=== PATIENT | female | born 1970 | race Caucasian/White ===

== ENCOUNTER 2021-02-16 14:35 | Emergency (ER) | payer MEDICARE, SELFPAY ==
[2021-02-16] VITALS (21 sets, daily range): BP systolic 111–136; BP diastolic 70–93; PULSE 62–82; RESP 10–35; TEMP 36.8; O2SAT 85–100; BMI 26.6
--- NOTE | 2021-02-16 14:39 | ED.CHESTPAIN ---
HPI - Chest Pain <Scot Barrios DO - Last Filed: 02/18/21 15:13> General Chief Complaint: Chest Pain Stated Complaint: chest pain Time Seen by Provider: 02/16/21 14:38 History of Present Illness HPI narrative: 50-year-old female smoker is deaf and without other medical problems. 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 She states she has been having sharp and stabbing right anterior chest pain for the past 2 days. She states worse when she moves and when she takes a deep breath. She states that she is only mildly short of breath and denies any cough, fever or chills. She is not dizzy nor weak or lightheaded. She does feel thirsty. She denies any abdominal pain, constipation or diarrhea. She denies dysuria, frequency or urgency. She denies any radiation of her discomfort, recent travel or history of blood clot. Related Data Previous Rx's Medication Instructions Recorded ibuprofen 800 mg tablet 800 mg PO Q8H PRN #20 tab 02/16/21 Allergies Allergy/AdvReac Type Severity Reaction Status Date / Time No Known Drug Allergies Allergy Verified 02/16/21 14:57 Review of Systems <Scot Barrios DO - Last Filed: 02/18/21 15:13> Review of Systems Narrative: GENERAL: Denies chills, fatigue, malaise, fever, sweats. HEENT: Denies sinus pain, ear pain, sore throat, difficulty swallowing, dizziness. RESPIRATORY: See HPI CARDIOVASCULAR: See HPI GASTROINTESTINAL: Denies nausea, vomiting, abdominal pain, diarrhea, constipation, melena. : Denies dysuria, frequency, incontinence, hematuria, urinary retention. MUSCULOSKELETAL: denies weakness, joint pain, or bony pain SKIN: Denies rash, skin lesions, or other NEUROLOGIC: Denies weakness, headache, numbness, change in speech, confusion, seizures, incoordination. PSYCHIATRIC: No concerning psychosocial issues. 12 point review of systems is negative except for those stated above Patient History <Scot Barrios DO - Last Filed: 02/18/21 15:13> Social History Smoking Status: Current every day smoker Exam <Scot Barrios DO - Last Filed: 02/18/21 15:13> Narrative Exam Narrative: GENERAL: [50] year old patient appears stated age. Well-developed patient, in mild distress. HEAD: Atraumatic. Normocephalic. EYES: Pupils equal round and reactive. Extraocular motions intact. No scleral icterus. No injection or drainage. ENT: Nose without bleeding, purulent drainage. Throat without erythema, tonsillar hypertrophy or exudate. Airway patent. NECK: Trachea midline. Non tender CARDIOVASCULAR: Regular rate and rhythm without murmurs, gallops, or rubs. Right anterior chest pain reproducible to palpation RESPIRATORY: Clear to auscultation. Breath sounds equal bilaterally. No wheezes, rales, or rhonchi. GASTROINTESTINAL: Abdomen soft, non-tender, nondistended. EXTREMITIES: No edema or joint tenderness. BACK: Nontender without deformity or crepitance. No flank tenderness. NEURO: AOx3. SKIN: No rash or erythema of visible areas Initial Vital Signs Initial Vital Signs: Vital Signs Temperature 98.2 F 02/16/21 14:40 Pulse Rate 75 02/16/21 14:40 Respiratory Rate 13 02/16/21 14:40 Blood Pressure 126/73 02/16/21 14:40 Pulse Oximetry 99 02/16/21 14:40 <Kiki Perez, DO - Last Filed: 02/17/21 05:26> Initial Vital Signs Initial Vital Signs: Vital Signs Temperature 98.2 F 02/16/21 14:40 Pulse Rate 75 02/16/21 14:40 Respiratory Rate 13 02/16/21 14:40 Blood Pressure 126/73 02/16/21 14:40 Pulse Oximetry 99 02/16/21 14:40 Scores <Scot Barrios, DO - Last Filed: 02/18/21 15:13> HEART Score Heart Score history: Slightly Suspicious Heart Score EKG: Normal Heart Score Age: 45-64 years old Heart Score risk factors: 1-2 risk factors Heart Score troponin: < or = to normal limit Heart Score Total: 2 PERC Score Age greater than or equal to 50 years: Yes Heart rate greater than or equal to 100 bpm: No Room Air O2 Sat less than 95%: No Unilateral leg swelling: No Recent trauma or surgery: No Hemoptysis: No Prior PE or DVT: No Hormone Use: No Total PERC Score: 1 Wells' Criteria for PE Clinical signs and symptoms of DVT: No PE is #1 Dx or equally likely: No Heart rate > 100: No Immobilization at least 3 days or surg in previous 4 weeks: No History of PE or DVT: No Hemoptysis: No Malignancy w/Treatment within 6 months or palliative: No Wells' PE Score total: 0 <Kiki Perez DO - Last Filed: 02/17/21 05:26> HEART Score Heart Score Total: 2 PERC Score Total PERC Score: 1 Wells' Criteria for PE Wells' PE Score total: 0 Course <Scot Barrios DO - Last Filed: 02/18/21 15:13> Course Course Narrative: 1999 -patient signed out to Dr. Perez for final disposition, D-dimer is pending and patient would likely receive CT angiogram should to be positive. Orders Ordered: Discontinued Medications Sodium Chloride (Normal Saline 0.9%) 1,000 mls @ 1,000 mls/hr IV BOLUS ONE Stop: 02/16/21 19:51 Last Infusion: 02/16/21 21:25 Dose: 0 mls/hr Documented by: Admin: 02/16/21 19:37 Dose: 1,000 mls/hr Documented by: HARRY Ketorolac Tromethamine (Ketorolac 30 Mg/Ml Vial) 15 mg IV NOW ONE Stop: 02/16/21 18:53 Last Admin: 02/16/21 19:37 Dose: 15 mg Documented by: HARRY Vital Signs Vital signs: Vital Signs - 8 hr 02/16/21 21:30 02/16/21 22:00 Pulse Rate 71 77 Respiratory Rate 11 L Blood Pressure 131/85 123/78 Pulse Oximetry 100 99 <Kiki Perez DO - Last Filed: 02/17/21 05:26> Orders Ordered: Discontinued Medications Sodium Chloride (Normal Saline 0.9%) 1,000 mls @ 1,000 mls/hr IV BOLUS ONE Stop: 02/16/21 19:51 Last Infusion: 02/16/21 21:25 Dose: 0 mls/hr Documented by: Admin: 02/16/21 19:37 Dose: 1,000 mls/hr Documented by: HARRY Ketorolac Tromethamine (Ketorolac 30 Mg/Ml Vial) 15 mg IV NOW ONE Stop: 02/16/21 18:53 Last Admin: 02/16/21 19:37 Dose: 15 mg Documented by: HARRY Vital Signs Vital signs: Vital Signs - 8 hr 02/16/21 21:30 02/16/21 22:00 Pulse Rate 71 77 Respiratory Rate 11 L Blood Pressure 131/85 123/78 Pulse Oximetry 100 99 MDM - Chest Pain <Scot Barrios DO - Last Filed: 02/18/21 15:13> Lab Data Result diagrams: 02/16/21 15:03 02/16/21 15:03 Labs: Lab Results 02/16/21 02/16/21 02/16/21 Range/Units 15:03 15:03 17:08 WBC 7.0 (4.5-11.0) X10^3/uL RBC 3.82 L (4.0-5.2) X10^6/uL Hgb 11.9 L (12.0-16.0) g/dL Hct 35.2 L (36-46) % MCV 92.2 (80-100) fL MCH 31.1 (26-34) PG MCHC 33.7 (30-36) % RDW 13.1 (11.6-14.8) % Plt Count 273 (150-400) X10^3/uL Neut % (Auto) 51.1 (50-75) % Lymph % (Auto) 37.2 (25-40) % [place] % (Auto) 8.9 (3-14) % Eos % (Auto) 1.7 L (2-4) % Baso % (Auto) 1.1 (0-2) % Neut # (Auto) 3600 (9403-3919) /uL Lymph # (Auto) 2600 (7117-0049) /uL [place] # (Auto) 600 (0-900) /uL Eos # (Auto) 100 (0-450) /uL Baso # (Auto) 100 (0-100) /uL D-Dimer (<230) ng/mL Sodium 138 (137-145) mmol/L Potassium 3.9 (3.4-5.1) mmol/L Chloride 110 H (98-107) mmol/L Carbon Dioxide 24 (22-32) mmol/L BUN 17 (7-17) mg/dL Creatinine 0.60 (0.52-1.04) mg/dL Estimated GFR > 60.0 (>60) mL/min BUN/Creatinine Ratio 28.3 H (6-22) Glucose 93 (70-100) mg/dL Calcium 8.8 (8.4-10.2) mg/dL Total Bilirubin < 0.1 L (0.2-1.3) mg/dL AST 23 (14-36) IU/L ALT 17 (<35) IU/L Alkaline Phosphatase 58 (38-126) U/L Total Creatine Kinase 34 (30-135) U/L CK-MB (CK-2) TNP CK-MB (CK-2) Rel Index TNP Troponin I < 0.012 < 0.012 (0.01-0.034) ng/mL Total Protein 6.4 (6.3-8.2) g/dL Albumin 3.4 L (3.5-5.0) g/dL Globulin 3.0 (1.7-4.1) g/dL Albumin/Globulin Ratio 1.1 (1.0-2.8) Lipase 85 (23-300) U/L // Range/Units 20:10 WBC (4.5-11.0) X10^3/uL RBC (4.0-5.2) X10^6/uL Hgb (12.0-16.0) g/dL Hct (36-46) % MCV (80-100) fL MCH (26-34) PG MCHC (30-36) % RDW (11.6-14.8) % Plt Count (150-400) X10^3/uL Neut % (Auto) (50-75) % Lymph % (Auto) (25-40) % [place] % (Auto) (3-14) % Eos % (Auto) (2-4) % Baso % (Auto) (0-2) % Neut # (Auto) (3583-9953) /uL Lymph # (Auto) (8324-7309) /uL [place] # (Auto) (0-900) /uL Eos # (Auto) (0-450) /uL Baso # (Auto) (0-100) /uL D-Dimer < 200 (<230) ng/mL Sodium (137-145) mmol/L Potassium (3.4-5.1) mmol/L Chloride (98-107) mmol/L Carbon Dioxide (22-32) mmol/L BUN (7-17) mg/dL Creatinine (0.52-1.04) mg/dL Estimated GFR (>60) mL/min BUN/Creatinine Ratio (6-22) Glucose (70-100) mg/dL Calcium (8.4-10.2) mg/dL Total Bilirubin (0.2-1.3) mg/dL AST (14-36) IU/L ALT (<35) IU/L Alkaline Phosphatase (38-126) U/L Total Creatine Kinase (30-135) U/L CK-MB (CK-2) CK-MB (CK-2) Rel Index Troponin I (0.01-0.034) ng/mL Total Protein (6.3-8.2) g/dL Albumin (3.5-5.0) g/dL Globulin (1.7-4.1) g/dL Albumin/Globulin Ratio (1.0-2.8) Lipase (23-300) U/L Imaging Data Chest x-ray: Radiologist's Impression: [address] [id number] ReportSigned Patient: Milly Parker#: [id number]: 1970Acct:[id number]/Sex: 50 / FDate of Service: 02/16/21Loc: EDAccession Number: [id number] Procedure: XR chest 1V Ordering Provider: Scot Barrios D.O. PROCEDURE: XR CHEST 1V INDICATIONS: chest pain TECHNIQUE: One view of the chest was acquired. COMPARISON: [facility], , XR CHEST 2 VIEWS, 07/21/2016, 20:43. FINDINGS: Surgical changes and devices: None. Lungs and pleura: Lungs are clear. No pleural effusions or pneumothorax. Mediastinum: Mediastinal contours appear normal. Heart size is normal. Bones and chest wall: No suspicious bony lesions. Overlying soft tissues appear unremarkable. IMPRESSION: No acute cardiopulmonary disease process. Dictated by: Chloe Mohan MD, PhD on 02/16/2021 at 15:14 Approved by: Chloe Mohan MD, PhD on 02/16/2021 at 15:15 <Kiki Perez, DO - Last Filed: 02/17/21 05:26> Lab Data Labs: Lab Results 02/16/21 02/16/21 02/16/21 Range/Units 15:03 15:03 17:08 WBC 7.0 (4.5-11.0) X10^3/uL RBC 3.82 L (4.0-5.2) X10^6/uL Hgb 11.9 L (12.0-16.0) g/dL Hct 35.2 L (36-46) % MCV 92.2 (80-100) fL MCH 31.1 (26-34) PG MCHC 33.7 (30-36) % RDW 13.1 (11.6-14.8) % Plt Count 273 (150-400) X10^3/uL Neut % (Auto) 51.1 (50-75) % Lymph % (Auto) 37.2 (25-40) % [place] % (Auto) 8.9 (3-14) % Eos % (Auto) 1.7 L (2-4) % Baso % (Auto) 1.1 (0-2) % Neut # (Auto) 3600 (6669-0665) /uL Lymph # (Auto) 2600 (5441-8981) /uL [place] # (Auto) 600 (0-900) /uL Eos # (Auto) 100 (0-450) /uL Baso # (Auto) 100 (0-100) /uL D-Dimer (<230) ng/mL Sodium 138 (137-145) mmol/L Potassium 3.9 (3.4-5.1) mmol/L Chloride 110 H (98-107) mmol/L Carbon Dioxide 24 (22-32) mmol/L BUN 17 (7-17) mg/dL Creatinine 0.60 (0.52-1.04) mg/dL Estimated GFR > 60.0 (>60) mL/min BUN/Creatinine Ratio 28.3 H (6-22) Glucose 93 (70-100) mg/dL Calcium 8.8 (8.4-10.2) mg/dL Total Bilirubin < 0.1 L (0.2-1.3) mg/dL AST 23 (14-36) IU/L ALT 17 (<35) IU/L Alkaline Phosphatase 58 (38-126) U/L Total Creatine Kinase 34 (30-135) U/L CK-MB (CK-2) TNP CK-MB (CK-2) Rel Index TNP Troponin I < 0.012 < 0.012 (0.01-0.034) ng/mL Total Protein 6.4 (6.3-8.2) g/dL Albumin 3.4 L (3.5-5.0) g/dL Globulin 3.0 (1.7-4.1) g/dL Albumin/Globulin Ratio 1.1 (1.0-2.8) Lipase 85 (23-300) U/L 02/16/21 Range/Units 20:10 WBC (4.5-11.0) X10^3/uL RBC (4.0-5.2) X10^6/uL Hgb (12.0-16.0) g/dL Hct (36-46) % MCV (80-100) fL MCH (26-34) PG MCHC (30-36) % RDW (11.6-14.8) % Plt Count (150-400) X10^3/uL Neut % (Auto) (50-75) % Lymph % (Auto) (25-40) % [place] % (Auto) (3-14) % Eos % (Auto) (2-4) % Baso % (Auto) (0-2) % Neut # (Auto) (2617-9595) /uL Lymph # (Auto) (3612-1592) /uL [place] # (Auto) (0-900) /uL Eos # (Auto) (0-450) /uL Baso # (Auto) (0-100) /uL D-Dimer < 200 (<230) ng/mL Sodium (137-145) mmol/L Potassium (3.4-5.1) mmol/L Chloride (98-107) mmol/L Carbon Dioxide (22-32) mmol/L BUN (7-17) mg/dL Creatinine (0.52-1.04) mg/dL Estimated GFR (>60) mL/min BUN/Creatinine Ratio (6-22) Glucose (70-100) mg/dL Calcium (8.4-10.2) mg/dL Total Bilirubin (0.2-1.3) mg/dL AST (14-36) IU/L ALT (<35) IU/L Alkaline Phosphatase (38-126) U/L Total Creatine Kinase (30-135) U/L CK-MB (CK-2) CK-MB (CK-2) Rel Index Troponin I (0.01-0.034) ng/mL Total Protein (6.3-8.2) g/dL Albumin (3.5-5.0) g/dL Globulin (1.7-4.1) g/dL Albumin/Globulin Ratio (1.0-2.8) Lipase (23-300) U/L ECG Data Attestation: I personally reviewed and interpreted this ECG as follows: Prior ECG tracings: not available for review Interpretation: Sinus rhythm no ST elevation/depression or ischemic changes appreciated. Rate of 75, [place] of 148 QRS of 96 and QTC of 435. MDM Narrative Medical decision making narrative: This is a 50-year-old deaf female who was signed out to myself by Dr. Barrios for chest pain patient had improvement with Toradol. She does not any acute changes on EKG appreciated. Troponin was negative x2. D-dimer was negative with slightly low hemoglobin otherwise reassuring labs. Patient had significant improvement with Toradol. 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 Discussed with patient she feels comfortable returning home. Reviewed her labs, imaging and findings today. Prescription for ibuprofen 800 mg is given. Patient does not have a primary care physician to option was given to her as well. All questions were answered. Discharge Plan Departure Patient Disposition: Home Clinical Impression: Chest pain Instructions: DI for Chest Pain Activity Restrictions/Additional Instructions: Follow up with your physician for recheck. They may wish to do additional work up. Contact them for an appointment on Thursday. Included is an option for primary care follow-up. Your labs today were reassuring. Your hemoglobin is slightly low at 11.9, your physician may follow this up. We do not have any prior labs for comparison. You may take ibuprofen up to 800 mg every 8 hours as needed for pain. If not adequate you can also take up to a 1000 mg of Tylenol every 8 hours as well. Do not take other NSAIDs such as Aleve, or Motrin with the Motrin prescription. Prescription sent to [facility] in [place]. Please return for fevers, new or worsening chest pain, shortness of breath, lightheadedness or passing out, persistent vomiting, black or bloody stools, diaphoresis or sweating, coughing up blood or other new or concerning symptoms. Prescriptions: New ibuprofen 800 mg tablet 800 mg PO Q8H PRN (Reason: pain) Qty: 20 RF: 0 Referrals: Colby Paniagua MD [Physician] - Stand Alone Forms: Work Release Note
--- NOTE | 2021-02-16 14:52 | DI.RAD.S_ITS ---
PROCEDURE: XR CHEST 1V INDICATIONS: chest pain TECHNIQUE: One view of the chest was acquired. COMPARISON: [facility], CR, XR CHEST 2 VIEWS, 07/21/2016, 20:43. FINDINGS: Surgical changes and devices: None. Lungs and pleura: Lungs are clear. No pleural effusions or pneumothorax. Mediastinum: Mediastinal contours appear normal. Heart size is normal. Bones and chest wall: No suspicious bony lesions. Overlying soft tissues appear unremarkable. IMPRESSION: No acute cardiopulmonary disease process. Dictated by: Chloe Mohan MD, PhD on 02/16/2021 at 15:14 Approved by: Chloe Mohan MD, PhD on 02/16/2021 at 15:15
[2021-02-16 15:07] LABS: Add Manual Diff / Slide Review NO; Basophils Absolute Auto 100 /uL (0-100); Basophils Percent Auto 1.1 % (0-2); Eosinophils Absolute Auto 100 /uL (0-450); Eosinophils Percent Auto 1.7 % (2-4); Hematocrit 35.2 % (36-46); Hemoglobin 11.9 g/dL (12.0-16.0); Lymphocytes Absolute Auto 2600 /uL (1100-4500); Lymphocytes Percent Auto 37.2 % (25-40); Mean Corpuscular HGB Conc 33.7 % (30-36); Mean Corpuscular Hemoglobin 31.1 PG (26-34); Mean Corpuscular Volume 92.2 fL (80-100); Monocytes Absolute Auto 600 /uL (0-900); Monocytes Percent Auto 8.9 % (3-14); Neutrophils Absolute Auto 3600 /uL (1500-7000); Neutrophils Percent Auto 51.1 % (50-75); Platelet Count 273 X10^3/uL (150-400); Red Blood Cell Count 3.82 X10^6/uL (4.0-5.2); Red Cell Distribution Width 13.1 % (11.6-14.8)
[2021-02-16 15:20] LABS: Alanine Aminotransferase 17 IU/L (<35); Albumin 3.4 g/dL (3.5-5.0); Albumin Globulin Ratio 1.1 (1.0-2.8); Alkaline Phosphatase 58 U/L (38-126); Aspartate Aminotransferase 23 IU/L (14-36); BUN Creatinine Ratio 28.3 (6-22); Blood Urea Nitrogen 17 mg/dL (7-17); Calcium 8.8 mg/dL (8.4-10.2); Carbon Dioxide 24 mmol/L (22-32); Chloride 110 mmol/L (98-107); Creatine Kinase 34 U/L (30-135); Estimated Glomerular Filt Rate > 60.0 mL/min (>60); Glucose 93 mg/dL (70-100); HEMOLYSIS < 15 (0-50); Lipase 85 U/L (23-300); Potassium 3.9 mmol/L (3.4-5.1); Sodium 138 mmol/L (137-145); Total Protein 6.4 g/dL (6.3-8.2)
[2021-02-16 15:24] LABS: Bilirubin Total < 0.1 mg/dL (0.2-1.3)
[2021-02-16 15:31] LABS: Troponin I < 0.012 ng/mL (0.01-0.034)
[2021-02-16 17:37] LABS: Troponin I < 0.012 ng/mL (0.01-0.034)
[2021-02-16] MEDS: KETOROLAC 30 MG/ML VIAL 15 MG IV (19:37)
[2021-02-16] MEDS: SODIUM CHLORIDE 0.9% 1,000 ML 1000 ML IV (19:37)
[2021-02-16 21:36] LABS: D Dimer < 200 ng/mL (<230)
== END 2021-02-16 22:27 | disposition home or self-care (01) ==
PROVIDERS: Emergency Medicine; Emergency Provider Emergency Medicine
DX: R07.9 Chest pain, unspecified (principal)
CPT/HCPCS: 36415; 71045; 80053; 82550; 83690; 84484; 85025; 85379; 93005; 96361; 96374; 99284; J1885

== ENCOUNTER 2023-08-31 18:05 | Emergency (ER) | payer MEDICARE, SELFPAY ==
[2023-08-31 18:32] VITALS: BP 105/74; PULSE 86; RESP 18; TEMP 36.9; O2SAT 98; BMI 22.2
[2023-08-31 19:37] LABS: Add Manual Diff / Slide Review NO; Basophils Absolute Auto 100 /uL (0-100); Eosinophils Absolute Auto 200 /uL (0-450); Eosinophils Percent Auto 2.4 % (2-4); Hematocrit 37.6 % (36-46); Hemoglobin 12.8 g/dL (12.0-16.0); Lymphocytes Absolute Auto 2900 /uL (1100-4500); Lymphocytes Percent Auto 31.7 % (25-40); Mean Corpuscular Hemoglobin 31.9 PG (26-34); Mean Corpuscular Volume 93.8 fL (80-100); Monocytes Absolute Auto 700 /uL (0-900); Monocytes Percent Auto 8.1 % (3-14); Neutrophils Absolute Auto 5100 /uL (1500-7000); Neutrophils Percent Auto 56.8 % (50-75); Platelet Count 276 X10^3/uL (150-400); Red Blood Cell Count 4.01 X10^6/uL (4.0-5.2); Red Cell Distribution Width 12.7 % (11.6-14.8); White Blood Cell Count 9.1 X10^3/uL (4.5-11.0)
[2023-08-31 19:48] LABS: Alanine Aminotransferase 21 IU/L (<35); Albumin 3.7 g/dL (3.5-5.0); Albumin Globulin Ratio 1.2 (1.0-2.8); Alkaline Phosphatase 61 U/L (38-126); Aspartate Aminotransferase 22 IU/L (14-36); BUN Creatinine Ratio 22.2 (6-22); Bilirubin Total 0.3 mg/dL (0.2-1.3); Blood Urea Nitrogen 12 mg/dL (7-17); Calcium 9.1 mg/dL (8.4-10.2); Carbon Dioxide 22 mmol/L (22-32); Chloride 108 mmol/L (98-107); Estimated Glomerular Filt Rate > 60 mL/min (>60); Glucose 127 mg/dL (70-100); HEMOLYSIS < 15 (0-50); Potassium 3.8 mmol/L (3.4-5.1); Sodium 139 mmol/L (137-145); Total Protein 6.7 g/dL (6.3-8.2)
--- NOTE | 2023-08-31 19:58 | DI.CT.S_ITS ---
PROCEDURE: CT SOFT TISSUE NECK W CON INDICATIONS: mass at low throat area TECHNIQUE: After the administration of intravenous contrast, 3.0 mm axial sections acquired from the sella to the aortic arch. Additional oblique axial 3.0 mm sections acquired through the pharynx. 3 mm thick coronal and sagittal reformats were generated. For radiation dose reduction, the following was used: automated exposure control. COMPARISON: None. FINDINGS: Image quality: Diagnostic Lymph nodes: No enlarged lymph nodes seen throughout the neck. Vessels: Visualized vasculature appears patent. Neck spaces: The oropharynx, nasopharynx, and pharynx demonstrate no mucosal lesions. The vocal cords, false vocal cords, pyriform sinuses, epiglottis, vallecula, and tongue base all appear normal. Extramucosal spaces appear unremarkable. Glands: The parotid and submandibular glands appear normal. Thyroid gland is abnormal in appearance. There is heterogeneous enlargement of the thyroid isthmus and left thyroid lobe with a 1.5 x 1.1 cm hypodense nodule in the left thyroid lobe. Suggestion of a 1.8 cm nodule within the isthmus. No evidence for mass effect of the adjacent structures. This correlates with area of palpable concern as denoted by skin BB marker.. Miscellaneous: Visualized brain and orbits appear normal. Lung apices appear clear. Superficial soft tissues appear normal. Bones: No suspicious bony lesions. Visualized sinuses and mastoids appear unremarkable. IMPRESSION: 1. The skin BB marker noted to the left of midline correlates with the abnormal appearing thyroid gland which demonstrates heterogeneous enlargement of the thyroid isthmus and left thyroid lobe. Suggestion of thyroid nodules with a 1.8 cm nodule in the isthmus and a 1.5 cm nodule in the left thyroid lobe. No associated mass effect of the adjacent structures or airway. Recommend dedicated outpatient thyroid ultrasound for further characterization. 2. Otherwise, no acute abnormalities identified in the neck. No adenopathy. Dictated by: Isaias Youngblood M.D. on 08/31/2023 at 20:39 Approved by: Isaias Youngblood M.D. on 08/31/2023 at 20:45
[2023-08-31 20:33] LABS: Appearance Urine UA CLEAR; Bilirubin Urine UA NEGATIVE (NEGATIVE); Color Urine UA YELLOW; Glucose Urine UA NEGATIVE (Negative); Ketones Urine UA NEGATIVE (NEGATIVE); Leukocyte Esterase Urine UA NEGATIVE (NEGATIVE); Nitrite Urine UA NEGATIVE (Negative); Occult Blood Urine UA 2+ (Negative); Protein Urine UA NEGATIVE (Negative); Specific Gravity Urine UA 1.015 (1.000-1.035); Urobilinogen Urine UA 0.2 E.U./dL (0.2)
[2023-08-31 20:37] LABS: pH Urine UA 5.5 (4.5-8.0)
[2023-08-31 20:38] LABS: Urine Volume 10mL (spun)
[2023-08-31 20:40] VITALS: PULSE 81; RESP 18; O2SAT 98
[2023-08-31 20:40] LABS: Bacteria Urine Occasional (0-1); Culture Indicated Urine Cult Not Indicated; RBC Urine 1-5/HPF (0-5/HPF); Squamous Epithelial Cell Urine 0-1 /HPF (0-5/HPF); WBC Urine None Seen (0-5/HPF)
[2023-08-31 20:41] VITALS: BP 99/63; PULSE 81; O2SAT 98
--- NOTE | 2023-08-31 20:50 | ED_ITS ---
HPI - Skin/Abscess/Foreign Bdy General Chief complaint: Skin/Abscess/Foreign Body Stated complaint: sore throat, dry mouth Time Seen by Provider: 08/31/23 18:27 Source: patient Mode of arrival: Ambulatory Limitations: other History of Present Illness HPI narrative: This is a 52-year-old smoker who is deaf. She presents with concern about a anterior neck mass and some difficulty with swallowing. Says it hurts to swallow at times. She has not short of breath. Has noticed this for about a month. Has not had problems similar to this before it does not have a fever. She does have an established primary care provider she has not yet seen them about this. 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 Related Data Previous Rx's Medication Instructions Recorded ibuprofen 800 mg tablet 800 mg PO Q8H PRN pain #20 tabs 02/16/21 oxycodone-acetaminophen 5 mg-325 1 tab PO Q8H PRN pain #14 tabs 08/12/22 mg tablet (Percocet) pantoprazole 40 mg tablet,delayed 40 mg PO DAILY 4 weeks #30 tabs 08/12/22 release Allergies Allergy/AdvReac Type Severity Reaction Status Date / Time No Known Drug Allergies Allergy Verified 08/12/22 16:44 Patient History Social History Smoking Status: Current every day smoker Smoking Status: Current every day smoker alcohol intake frequency: holidays/special occasions only Substance Use Type: does not use Exam Initial Vital Signs Initial Vital Signs: Vital Signs Temperature 98.5 F 08/31/23 18:32 Pulse Rate 86 08/31/23 18:32 Respiratory Rate 18 08/31/23 18:32 Blood Pressure 105/74 08/31/23 18:32 Pulse Oximetry 98 08/31/23 18:32 Oxygen Delivery Method Room Air 08/31/23 18:32 Const General: No acute distress HENMT Head: normocephalic and atraumatic Neck Other: No stridor or respiratory distress. A little bit of thyroid enlargement palpable without tenderness. No cervical adenopathy, neck is supple Resp Other: Lungs are clear with equal breath sounds Skin Other: Warm and dry Neuro Other: No facial asymmetry, no gross motor deficits seems fully alert and oriented Course Orders Ordered: ED Orders 08/31/23 18:27 Comprehensive Metabolic Panel Stat 08/31/23 19:27 Complete Blood Count AUTO DIFF Stat 08/31/23 19:58 CT soft tissue neck w con Stat 08/31/23 20:17 Urinalysis and Microscopic Stat 08/31/23 20:52 Free T4, Direct Thyroxine Stat T4 Total Thyroxine Stat TSH [Thyroid Stimulating Hormone] Stat Vital Signs Vital signs: Vital Signs - 8 hr 08/31/23 18:32 08/31/23 20:40 08/31/23 20:41 Temperature 98.5 F Pulse Rate 86 81 Respiratory Rate 18 18 Blood Pressure 105/74 99/63 Pulse Oximetry 98 98 Oxygen Delivery Method Room Air Room Air MDM - Skin/Abscess/Foreign Bdy Lab Data Lab results narrative: CBC with diff and CMP are unremarkable. TSH and T4 were sent, pending at the time of discharge 08/31/23 19:27 08/31/23 18:27 Labs: Lab Results 08/31/23 08/31/23 08/31/23 Range/Units 18:27 19:27 20:17 WBC 9.1 (4.5-11.0) X10^3/uL RBC 4.01 (4.0-5.2) X10^6/uL Hgb 12.8 (12.0-16.0) g/dL Hct 37.6 (36-46) % MCV 93.8 (80-100) fL MCH 31.9 (26-34) PG MCHC 34.0 (30-36) % RDW 12.7 (11.6-14.8) % Plt Count 276 (150-400) X10^3/uL Neut % (Auto) 56.8 (50-75) % Lymph % (Auto) 31.7 (25-40) % [place] % (Auto) 8.1 (3-14) % Eos % (Auto) 2.4 (2-4) % Baso % (Auto) 1.0 (0-2) % Neut # (Auto) 5100 (1247-2943) /uL Lymph # (Auto) 2900 (1613-5905) /uL [place] # (Auto) 700 (0-900) /uL Eos # (Auto) 200 (0-450) /uL Baso # (Auto) 100 (0-100) /uL Sodium 139 (137-145) mmol/L Potassium 3.8 (3.4-5.1) mmol/L Chloride 108 H (98-107) mmol/L Carbon Dioxide 22 (22-32) mmol/L BUN 12 (7-17) mg/dL Creatinine 0.54 (0.52-1.04) mg/dL Estimated GFR > 60 (>60) mL/min BUN/Creatinine Ratio 22.2 H (6-22) Glucose 127 H (70-100) mg/dL Calcium 9.1 (8.4-10.2) mg/dL Total Bilirubin 0.3 (0.2-1.3) mg/dL AST 22 (14-36) IU/L ALT 21 (<35) IU/L Alkaline Phosphatase 61 (38-126) U/L Total Protein 6.7 (6.3-8.2) g/dL Albumin 3.7 (3.5-5.0) g/dL Globulin 3.0 (1.7-4.1) g/dL Albumin/Globulin Ratio 1.2 (1.0-2.8) Urine Color Yellow Urine Appearance Clear Urine pH 5.5 (4.5-8.0) Ur Specific [place] 1.015 (1.000-1.035) Urine Protein Negative (Negative) Urine Glucose (UA) Negative (Negative) g/dL Urine Ketones Negative (NEGATIVE) Urine Occult Blood 2+ H (Negative) Urine Nitrate Negative (Negative) Urine Bilirubin Negative (NEGATIVE) Urine Urobilinogen 0.2 (0.2) E.U./dL Ur Leukocyte Esterase Negative (NEGATIVE) Urine RBC 1-5/hpf (0-5/HPF) Urine WBC None seen (0-5/HPF) Ur Squamous Epith Cells 0-1 /hpf (0-5/HPF) Urine Bacteria Occasional (0-1) (None) Ur Culture Indicated? Cult not indicated Vol Urine Centrifuged 10ml (spun) Imaging Data CT neck: Radiologist's Impression: [address] [address] [address] Scan Report Signed Patient: Milly Parker MR#: [id number] : 1970 Acct:[id number] Age/Sex: 52 / F Date of Service: 08/31/23 Loc: ED Accession Number: [id number] Procedure: CT soft tissue neck w con Ordering Provider: Mark Rocha MD PROCEDURE: CT SOFT TISSUE NECK W CON INDICATIONS: mass at low throat area TECHNIQUE: After the administration of intravenous contrast, 3.0 mm axial sections acquired from the sella to the aortic arch. Additional oblique axial 3.0 mm sections acquired through the pharynx. 3 mm thick coronal and sagittal reformats were generated. For radiation dose reduction, the following was used: automated exposure control. COMPARISON: None. FINDINGS: Image quality: Diagnostic Lymph nodes: No enlarged lymph nodes seen throughout the neck. Vessels: Visualized vasculature appears patent. Neck spaces: The oropharynx, nasopharynx, and pharynx demonstrate no mucosal lesions. The vocal cords, false vocal cords, pyriform sinuses, epiglottis, vallecula, and tongue base all appear normal. Extramucosal spaces appear unremarkable. Glands: The parotid and submandibular glands appear normal. Thyroid gland is abnormal in appearance. There is heterogeneous enlargement of the thyroid isthmus and left thyroid lobe with a 1.5 x 1.1 cm hypodense nodule in the left thyroid lobe. Suggestion of a 1.8 cm nodule within the isthmus. No evidence for mass effect of the adjacent structures. This correlates with area of palpable concern as denoted by skin BB marker.. Miscellaneous: Visualized brain and orbits appear normal. Lung apices appear clear. Superficial soft tissues appear normal. Bones: No suspicious bony lesions. Visualized sinuses and mastoids appear unremarkable. IMPRESSION: 1. The skin BB marker noted to the left of midline correlates with the abnormal appearing thyroid gland which demonstrates heterogeneous enlargement of the thyroid isthmus and left thyroid lobe. Suggestion of thyroid nodules with a 1.8 cm nodule in the isthmus and a 1.5 cm nodule in the left thyroid lobe. No associated mass effect of the adjacent structures or airway. Recommend dedicated outpatient thyroid ultrasound for further characterization. 2. Otherwise, no acute abnormalities identified in the neck. No adenopathy. Dictated by: Isaias Youngblood M.D. on 08/31/2023 at 20:39 Approved by: Isaias Youngblood M.D. on 08/31/2023 at 20:45 [facility] Narrative Medical decision making narrative: 52-year-old female presenting with concern about neck swelling that is gradual in onset. She has not having difficulty managing her secretions she has no evidence of airway obstruction. Imaging shows enlarged thyroid gland. He does not appear to be thyrotoxic. Patient was referred to her primary care provider further workup. Discharge Plan Departure Patient Disposition: Home Clinical Impression: Thyroid mass of unclear etiology Activity Restrictions/Additional Instructions: Imaging today shows evidence of thyroid enlargement. This is not something that requires immediate action however you should follow up as soon as possible with your primary care provider for further evaluation of this. I sent thyroid function labs for your provider to review today. I also recommend that your primary care provider review the imaging from today. It is likely that the next step in evaluation of this is an outpatient ultrasound of your thyroid gland. If you are having fevers increasing shortness of breath or severe pain return to the emergency department. May use ibuprofen and or Tylenol as needed for pain. Prescriptions: No Action pantoprazole 40 mg tablet,delayed release (DR/EC) 40 mg PO DAILY 28 Days Qty: 30 1RF oxycodone-acetaminophen [Percocet] 5-325 mg tablet 1 tab PO Q8H PRN (Reason: pain) Qty: 14 0RF ibuprofen 800 mg tablet 800 mg PO Q8H PRN (Reason: pain) Qty: 20 0RF Referrals: Miscellaneous,Doctor, [Primary Care Provider] - Stand Alone Forms: Patient Portal/API
[2023-08-31 21:00] VITALS: BP 142/81; PULSE 82; O2SAT 98
[2023-08-31 21:25] LABS: Free T4, Direct Thyroxine 1.05 ng/dL (0.78-2.19); T4 Total Thyroxine 4.91 ug/dL (5.5-11.0)
[2023-08-31 21:42] LABS: Thyroid Stimulating Hormone 1.57 uIU/mL (0.47-4.68)
== END 2023-08-31 21:23 | disposition home or self-care (01) ==
PROVIDERS: Emergency Provider Emergency Medicine
DX: E07.89 Other specified disorders of thyroid (principal)
CPT/HCPCS: 36415; 70491; 80053; 81001; 84436; 84439; 84443; 85025; 99284; Q9967